=== PATIENT | male | born 1970 | race African-American/Black ===

== ENCOUNTER 2021-02-13 09:04 | Emergency (ER) | payer SELFPAY ==
--- NOTE | 2021-02-13 09:59 | RAD REPORT ---
EXAM DESCRIPTION: RAD - Chest Pa And Lat (2 Views) - 02/13/2021 9:48 am CLINICAL HISTORY: Cough;Congestion COMPARISON: No comparisons FINDINGS: Lines: None. Lungs: No evidence of edema or pneumonia. Pleural: No significant pleural effusions or pneumothorax. Cardiac: The heart size is within normal limits. Bones: No acute fractures. Other: IMPRESSION: No acute cardiopulmonary disease.
[2021-02-13 10:29] LABS: SARS-COV-2 RT PCR NEGATIVE (NEGATIVE)
--- NOTE | 2021-02-13 10:34 | EDPHYS ---
Physician Documentation [facility] Name: Albaro Zavaleta Age: 51 yrs Sex: Male : 1970 Arrival Date: 02/13/2021 Time: 09:06 Bed Waiting Private MD: ED Physician Jon Martin HPI: 02/13 09:53 This 51 yrs old Black Male presents to ER via Ambulatory with complaints of Cough, kb Congestion, Wheezing > 1 Year, Diarrhea. 09:53 The patient or guardian reports cough, that is intermittent, described as mild, flu kb symptoms, low-grade fever. Onset: The symptoms/episode began/occurred 1 week(s) ago. Severity of symptoms: At their worst the symptoms were moderate, in the emergency department the symptoms are unchanged. Modifying factors: The symptoms are alleviated by nothing, the symptoms are aggravated by nothing. Associated signs and symptoms: Pertinent positives: fever, Pertinent negatives: chest pain, diarrhea, ear ache, nausea, rhinorrhea, sore throat, vomiting. The patient has not experienced similar symptoms in the past. The patient has not recently seen a physician. Historical: - Allergies: 09:12 No Known Allergies; iw - Home Meds: 09:12 None [Active]; iw - PMHx: 09:12 None; iw - PSHx: 09:12 None; iw - Immunization history:: Client reports having NOT received the Covid vaccine. - Social history:: Smoking status: Patient reports the use of cigarette tobacco products, smokes one pack cigarettes per day. ROS: 09:52 Abdomen/GI: Negative for abdominal pain, nausea, vomiting, diarrhea, and constipation. kb 09:52 Constitutional: Positive for chills, fever. 09:52 ENT: Positive for sinus congestion. 09:52 Respiratory: Positive for cough, Negative for dyspnea on exertion, hemoptysis, orthopnea, pleurisy, shortness of breath, sputum production, wheezing. 09:52 All other systems are negative. Exam: 09:52 Constitutional: This is a well developed, well nourished patient who is awake, alert, kb and in no acute distress. Head/Face: Normocephalic, atraumatic. ENT: Moist Mucous membranes Cardiovascular: Regular rate and rhythm with a normal S1 and S2. No gallops, murmurs, or rubs. No pulse deficits. Respiratory: Respirations even and unlabored. No increased work of breathing. Talking in full sentences Skin: Warm, dry with normal turgor. Normal color. MS/ Extremity: Pulses equal, no cyanosis. Neurovascular intact. Full, normal range of motion. Neuro: Awake and alert, GCS 15, oriented to person, place, time, and situation. Moves all extremities. Normal gait. Psych: Awake, alert, with orientation to person, place and time. Behavior, mood, and affect are within normal limits. Vital Signs: 09:12 Temp 98.3; iw 09:13 BP 146 / 96; Pulse 93; Resp 18; Pulse Ox 96% ; iw MDM: 09:14 Patient medically screened. kb 09:53 Data reviewed: vital signs, nurses notes. Data interpreted: Pulse oximetry: on room air kb is 96 %. Interpretation: normal. 10:32 Counseling: I had a detailed discussion with the patient and/or guardian regarding: the kb historical points, exam findings, and any diagnostic results supporting the discharge/admit diagnosis, lab results, radiology results, the need for outpatient follow up, a family practitioner, to return to the emergency department if symptoms worsen or persist or if there are any questions or concerns that arise at home. 02/13 09:14 Order name: COVID-19/FLU A+B (Document "Date of Onset" if Symptomatic) 02/13 09:15 Order name: COVID-19/FLU A+B; Complete Time: 10:30 EDMS 02/13 09:14 Order name: Chest Pa And Lat (2 Views) XRAY; Complete Time: 10:01 kb Administered Medications: No medications were administered Disposition: 02/14 08:38 Co-signature as Attending Physician, Jon Martin MD I agree with the assessment and juliocesar plan of care. Disposition Summary: 02/13/21 10:33 Discharge Ordered Location: Home kb Condition: Stable kb Diagnosis - Acute upper respiratory infection, unspecified kb Followup: kb - With: Emergency Department - When: As needed - Reason: Worsening of condition Followup: kb - With: Private Physician - When: 2 - 3 days - Reason: Recheck today's complaints, Continuance of care, Re-evaluation by your physician Discharge Instructions: - Discharge Summary Sheet kb - Upper Respiratory Infection, Adult, [id number] kb - Viral Respiratory Infection, [id number] kb Forms: - Medication Reconciliation Form kb - Thank You Letter kb - Antibiotic Education kb - Prescription Opioid Use kb Signatures: Dispatcher [employer] EDEmily Cerna, ANJELICA-C ANJELICA-Jon Tijerina MD MD cha Williams, Irene RN RN iw
--- NOTE | 2021-02-13 10:34 | ER ---
Nurse's Notes [facility] Name: Albaro Zavaleta Age: 51 yrs Sex: Male : 1970 Arrival Date: 02/13/2021 Time: 09:06 Bed Waiting Private MD: Diagnosis: Acute upper respiratory infection, unspecified Presentation: 02/13 09:11 Chief complaint: Patient states: cough, congestion X 1 week , intermittent fever. iw 09:11 Method Of Arrival: Ambulatory iw 09:14 Coronavirus screen: Client presents with at least one sign or symptom that may indicate iw coronavirus-19. Ebola Screen: Patient negative for fever greater than or equal to 101.5 degrees Fahrenheit, and additional compatible Ebola Virus Disease symptoms Patient denies exposure to infectious person. Patient denies travel to an Ebola-affected area in the 21 days before illness onset. No symptoms or risks identified at this time. Initial Sepsis Screen: Does the patient meet any 2 criteria? No. Patient's initial sepsis screen is negative. Does the patient have a suspected source of infection? No. Patient's initial sepsis screen is negative. Risk Assessment: Do you want to hurt yourself or someone else? Patient reports no desire to harm self or others. Onset of symptoms was February 06, 2021. 09:14 Acuity: AGAPITO 4 iw Historical: - Allergies: 09:12 No Known Allergies; iw - Home Meds: 09:12 None [Active]; iw - PMHx: 09:12 None; iw - PSHx: 09:12 None; iw - Immunization history:: Client reports having NOT received the Covid vaccine. - Social history:: Smoking status: Patient reports the use of cigarette tobacco products, smokes one pack cigarettes per day. Screenin:14 Abuse screen: Denies threats or abuse. Denies injuries from another. Nutritional iw screening: No deficits noted. Tuberculosis screening: No symptoms or risk factors identified. Fall Risk None identified. Assessment: 09:13 General: Appears in no apparent distress. Behavior is calm, cooperative. Pain:. Neuro: iw Level of Consciousness is awake, alert, obeys commands, Oriented to person, place, time, situation, Moves all extremities. Full function. Cardiovascular: Patient's skin is warm and dry. Respiratory: Reports cough that is Airway is patent Breath sounds are clear bilaterally. Derm: Skin is intact, is healthy with good turgor. Vital Signs: 09:12 Temp 98.3; iw 09:13 BP 146 / 96; Pulse 93; Resp 18; Pulse Ox 96% ; iw ED Course: 09:06 Patient arrived in ED. as 09:13 [facility]C [facility] kb 09:14 Jon Martin MD is Attending Physician. kb 09:15 Triage completed. iw 09:16 COVID-19/FLU A+B (Document "Date of Onset" if Symptomatic) Sent. [email or web address] 09:48 Chest Pa And Lat (2 Views) XRAY In Process Unspecified. EDMS 10:36 Sharonda Godfrey, RN is Primary Nurse. iw Administered Medications: No medications were administered Outcome: 10:33 Discharge ordered by . kb 10:39 Patient left the ED. iw Signatures: Dispatcher [employer] EDMS Emily Ochoa FNP-C FNP-Erum Oro as Sharonda Godfrey, RN RN iw Ariella Ochoa [email or web address]
[2021-02-13 10:46] VITALS: TEMP 98.3
[2021-02-13 10:47] VITALS: BP 146/96; O2SAT 96
== END 2021-02-13 10:39 | disposition home or self-care (01) ==
LOC: ER 09:04
DX: J06.9 Acute upper respiratory infection, unspecified (principal); F17.210 Nicotine dependence, cigarettes, uncomplicated; Z20.822 Contact with and (suspected) exposure to COVID-19
CPT/HCPCS: 0240U; 71046; 99283